=== PATIENT | male | born 1960 | race African-American/Black ===

== ENCOUNTER 2020-09-18 14:22 | Inpatient (IN) | payer MEDICARE, SELFPAY ==
[2020-09-18 15:00] LABS: #Basophils 0.1 thou/uL (0.0-0.2); #Eosinphils 0.1 thou/uL (0.0-0.7); #Lymphocytes 2.8 thou/uL (1.20-3.40); #Monocytes 0.9 thou/uL (0.11-0.59); #Neutrophils 2.5 thou/uL (1.40-6.50); %Basophils 1.5 % (0.0-1.0); %Eosinophils 1.2 % (0.0-10.0); %Lymphocytes 44.1 % (21.0-51.0); %Monocytes 13.3 % (0.0-10.0); %Neutrophils 39.8 % (42.0-75.0); Hemoglobin 14.1 g/dL (14.0-18.0); Mean Corpuscular HGB CONC 33.8 g/dL (32.0-36.0); Mean Corpuscular Hemoglobin 33.5 pg (27.0-31.0); Mean Corpuscular Volume 99.1 fL (78.0-98.0); Mean Platelet Volume 6.9 fL (7.4-10.4); Platelet Count 373 thou/uL (130-400); RBC Distribution Width 13.4 % (11.5-14.5); Red Blood Cell (RBC) Count 4.21 mill/uL (4.70-6.10); White Blood Cell (WBC) Count 6.4 thou/uL (4.8-10.8)
[2020-09-18 15:21] LABS: ALT (SGPT) 20 U/L (8-55); AST (SGOT) 33 U/L (5-34); Albumin 3.7 g/dL (3.4-4.8); Alkaline Phosphatase 57 U/L (40-110); Anion Gap 13 mmol/L (10-20); BUN (Urea Nitrogen) 9 mg/dL (8.4-25.7); Bilirubin, Total 0.3 mg/dL (0.2-1.2); Calc. Creatinine Clearance 0 mL/min (70-130); Calcium 8.5 mg/dL (7.8-10.44); Carbon Dioxide 26 mmol/L (23-31); Chloride 108 mmol/L (98-107); Globulin 3.4 g/dL (2.4-3.5); Glucose 113 mg/dL (80-115); Potassium 3.3 mmol/L (3.5-5.1); Protein, Total 7.1 g/dL (5.8-8.1); Sodium 144 mmol/L (136-145)
[2020-09-18 15:43] LABS: CKMB 2.2 ng/mL (0-6.6)
[2020-09-18] MEDS ORDERED: Nitroglycerin 2% Ointment 1 INCH/1 GM Packet ONE (16:08)
[2020-09-18] MEDS ORDERED: Aspirin 325 MG TAB ONE (16:08)
[2020-09-18] MEDS ORDERED: Ondansetron PF 4 MG/2 ML Vial IVP PRN (18:45)
[2020-09-18] MEDS ORDERED: Ondansetron ODT 4 MG TAB SL PRN (18:45)
[2020-09-18] MEDS ORDERED: Acetaminophen 325 MG TAB PO PRN (18:45)
[2020-09-18 18:57] VITALS: BMI 32.8
[2020-09-18] MEDS ORDERED: Nitroglycerin 0.4 MG TAB (25 Tab Bottle) SL PRN (20:00)
[2020-09-18 21:31] LABS: Troponin I 0.064 ng/mL (< 0.028)
[2020-09-18] MEDS ORDERED: Electrolyte Replacement Protocol 1 EACH FS SCH (22:30)
[2020-09-18] MEDS ORDERED: Potassium Chloride 20 MEQ TAB PO SCH (22:30)
[2020-09-18] MEDS ORDERED: Electrolyte Replacement Protocol FS PRN (22:45)
[2020-09-18] MEDS ORDERED: Enoxaparin Sodium 100 MG/ML SYRINGE SC SCH (22:45)
[2020-09-18] MEDS: Morphine 4 MG/ML VIAL SLOW IVP PRN (23:16)
[2020-09-19] MEDS: hydrALAZINE 20 MG/ML VIAL SLOW IVP PRN ×2 (01:01→06:02)
[2020-09-19] MEDS ORDERED: Labetalol HCl 100 MG/20 ML VIAL SLOW IVP PRN ×2 (03:08→05:26)
[2020-09-19] MEDS ORDERED: Amlodipine 5 MG TAB PO SCH ×2 (03:30→09:00)
[2020-09-19 04:09] LABS: SARS-CoV-2 NAA Rapid Test Not Detected (NotDetected)
[2020-09-19 05:43] LABS: Eosinophils 1 % (0-10); Lymphocytes 40 % (21-51); MDiff Complete? YES; Mean Corpuscular HGB CONC 33.1 g/dL (32.0-36.0); Mean Corpuscular Hemoglobin 32.6 pg (27.0-31.0); Mean Corpuscular Volume 98.3 fL (78.0-98.0); Mean Platelet Volume 6.8 fL (7.4-10.4); Monocytes 8 % (0-10); Neutrophil 41 % (42-75); Nucleated RBC 1 % (0); Platelet Count 354 thou/uL (130-400); Platelet Morphology Comment Appears Adequate; RBC Distribution Width 13.4 % (11.5-14.5); Reactive Lymphocytes 10 % (0-10); Red Blood Cell (RBC) Count 3.98 mill/uL (4.70-6.10); White Blood Cell (WBC) Count 7.3 thou/uL (4.8-10.8)
[2020-09-19 05:46] LABS: Anion Gap 15 mmol/L (10-20); BUN (Urea Nitrogen) 8 mg/dL (8.4-25.7); Calc. Creatinine Clearance 132 mL/min (70-130); Calcium 8.2 mg/dL (7.8-10.44); Carbon Dioxide 24 mmol/L (23-31); Chloride 105 mmol/L (98-107); Glucose 84 mg/dL (80-115); Magnesium 1.2 mg/dL (1.6-2.6); Sodium 141 mmol/L (136-145)
[2020-09-19 05:52] LABS: Potassium 2.7 mmol/L (3.5-5.1)
[2020-09-19] MEDS: Morphine 4 MG/ML VIAL SLOW IVP PRN (06:11)
[2020-09-19] MEDS ORDERED: Magnesium Sulfate 4 GM in Sodium Chloride 0.9% 250 ML 250 ML IVPB SCH (06:15)
[2020-09-19] MEDS: Potassium Chloride 20 MEQ TAB PO SCH ×2 (06:41→10:37)
[2020-09-19] MEDS: Aspirin Chewable 81 MG TAB PO SCH (08:31)
[2020-09-19] MEDS ORDERED: Enoxaparin Sodium 100 MG/ML SYRINGE SC SCH (09:00)
[2020-09-19] MEDS ORDERED: Enoxaparin Sodium 40 MG/0.4 ML SYRINGE SC SCH ×2 (09:00)
[2020-09-19] MEDS ORDERED: Hydrochlorothiazide 25 MG TAB PO SCH (09:00)
[2020-09-19] MEDS ORDERED: Electrolyte Replacement Protocol 1 EACH FS SCH (09:30)
[2020-09-19] MEDS ORDERED: Magnesium 2 GM/50 ML 3 GM in Premix Bag 1 BAG IVPB SCH (09:30)
[2020-09-19] MEDS ORDERED: Sodium Chloride 0.9% 1,000 ML IV SCH ×2 (09:45→09:47)
[2020-09-19] MEDS ORDERED: Magnesium Sulfate 3 GM in Sodium Chloride 0.9% 100 ML IVPB SCH (09:45)
[2020-09-19] MEDS ORDERED: Promethazine HCl 12.5 MG SUPP PR PRN (09:47)
[2020-09-19] MEDS ORDERED: Cetirizine HCl 10 MG TAB PO PRN (09:47)
[2020-09-19] MEDS ORDERED: Loratadine 10 MG TAB PO PRN (09:52)
[2020-09-19] MEDS: DULoxetine 30 MG CAP PO SCH (10:30)
[2020-09-19] MEDS ORDERED: Digoxin 0.125 MG TAB PO SCH (14:30)
[2020-09-19] MEDS ORDERED: Lorazepam 2 MG/ML VIAL SLOW IVP PRN (14:31)
[2020-09-19] MEDS: Sodium Chloride 0.9% 1,000 ML IV SCH (14:54)
[2020-09-19] MEDS: Lorazepam 1 MG TAB PO SCH ×3 (14:54→21:06)
[2020-09-19 15:02] LABS: Potassium 3.3 mmol/L (3.5-5.1)
[2020-09-19] MEDS ORDERED: Potassium Chloride 20 MEQ TAB PO SCH ×2 (15:15→23:30)
[2020-09-19 18:33] LABS: Troponin I 0.053 ng/mL (< 0.028)
[2020-09-19 20:47] LABS: Potassium 3.6 mmol/L (3.5-5.1)
[2020-09-19] MEDS: Metoprolol Tartrate 25 MG TAB PO SCH (21:08)
[2020-09-20] MEDS: hydrALAZINE 20 MG/ML VIAL SLOW IVP PRN (00:09)
[2020-09-20] MEDS: Sodium Chloride 0.9% 1,000 ML IV SCH (04:25)
[2020-09-20 05:16] LABS: Hemoglobin 14.4 g/dL (14.0-18.0); Mean Corpuscular HGB CONC 33.9 g/dL (32.0-36.0); Mean Corpuscular Hemoglobin 33.6 pg (27.0-31.0); Mean Corpuscular Volume 99.1 fL (78.0-98.0); Mean Platelet Volume 6.9 fL (7.4-10.4); Platelet Count 359 thou/uL (130-400); RBC Distribution Width 13.3 % (11.5-14.5); Red Blood Cell (RBC) Count 4.29 mill/uL (4.70-6.10); White Blood Cell (WBC) Count 5.5 thou/uL (4.8-10.8)
[2020-09-20 05:28] LABS: Eosinophils 1 % (0-10); Lymphocytes 23 % (21-51); MDiff Complete? YES; Monocytes 18 % (0-10); Neutrophil 54 % (42-75); Nucleated RBC 1 % (0); Platelet Morphology Comment Appears Adequate; Reactive Lymphocytes 4 % (0-10)
[2020-09-20 05:32] LABS: Anion Gap 11 mmol/L (10-20); BUN (Urea Nitrogen) 6 mg/dL (8.4-25.7); Calc. Creatinine Clearance 133 mL/min (70-130); Calcium 8.3 mg/dL (7.8-10.44); Carbon Dioxide 26 mmol/L (23-31); Chloride 103 mmol/L (98-107); Glucose 81 mg/dL (80-115); Lipase 54 U/L (8-78); Potassium 3.4 mmol/L (3.5-5.1); Sodium 137 mmol/L (136-145)
[2020-09-20] MEDS ORDERED: Potassium Chloride 20 MEQ TAB PO SCH (06:30)
[2020-09-20] MEDS: Terazosin HCl 5 MG CAP PO SCH (08:00)
[2020-09-20] MEDS: Aspirin Chewable 81 MG TAB PO SCH (08:00)
[2020-09-20] MEDS: Lorazepam 1 MG TAB PO SCH ×3 (08:01→21:03)
[2020-09-20] MEDS: Metoprolol Tartrate 25 MG TAB PO SCH ×2 (08:01→21:03)
[2020-09-20] MEDS: Enoxaparin Sodium 40 MG/0.4 ML SYRINGE SC SCH (08:02)
[2020-09-20] MEDS: DULoxetine 30 MG CAP PO SCH (08:02)
[2020-09-20] MEDS ORDERED: Non-Formulary Item 1 EACH (Omeprazole [Omeprazole] 40 MG Capsule.Dr) PO SCH ×2 (09:00)
[2020-09-20] MEDS: Diltiazem HCl 125 MG, Admixture Fee 1 EACH in Sodium Chloride 0.9% 100 ML IVPB SCH (09:26)
[2020-09-20] MEDS: Acetaminophen 500 MG TAB PO PRN (21:02)
[2020-09-21 06:08] LABS: Band 5 % (5-11); Eosinophils 1 % (0-10); Hemoglobin 13.7 g/dL (14.0-18.0); Hypochromia SLIGHT = 6-15 cells (100X) (0-5/hpf); Lymphocytes 35 % (21-51); MDiff Complete? YES; Mean Corpuscular Hemoglobin 32.7 pg (27.0-31.0); Mean Corpuscular Volume 99.3 fL (78.0-98.0); Mean Platelet Volume 7.1 fL (7.4-10.4); Monocytes 14 % (0-10); Neutrophil 45 % (42-75); Platelet Count 347 thou/uL (130-400); Platelet Morphology Comment Appears Adequate; RBC Distribution Width 13.3 % (11.5-14.5); Red Blood Cell (RBC) Count 4.18 mill/uL (4.70-6.10); White Blood Cell (WBC) Count 6.1 thou/uL (4.8-10.8)
[2020-09-21 06:18] LABS: Anion Gap 11 mmol/L (10-20); BUN (Urea Nitrogen) 8 mg/dL (8.4-25.7); Calc. Creatinine Clearance 128 mL/min (70-130); Calcium 8.5 mg/dL (7.8-10.44); Carbon Dioxide 25 mmol/L (23-31); Chloride 105 mmol/L (98-107); Glucose 86 mg/dL (80-115); Magnesium 1.6 mg/dL (1.6-2.6); Potassium 3.4 mmol/L (3.5-5.1); Sodium 138 mmol/L (136-145)
[2020-09-21] MEDS ORDERED: Magnesium 2 GM/50 ML 2 GM in Premix Bag 1 BAG IVPB SCH (06:30)
[2020-09-21] MEDS ORDERED: Potassium Chloride 20 MEQ TAB PO SCH (06:30)
[2020-09-21] MEDS: DULoxetine 30 MG CAP PO SCH (08:41)
[2020-09-21] MEDS: Enoxaparin Sodium 40 MG/0.4 ML SYRINGE SC SCH (08:41)
[2020-09-21] MEDS: Aspirin Chewable 81 MG TAB PO SCH (08:41)
[2020-09-21] MEDS: Metoprolol Tartrate 25 MG TAB PO SCH (08:42)
[2020-09-21] MEDS: Terazosin HCl 5 MG CAP PO SCH (08:42)
[2020-09-21] MEDS: Lorazepam 1 MG TAB PO SCH ×2 (08:42→14:48)
[2020-09-21] MEDS: Diltiazem HCl 125 MG, Admixture Fee 1 EACH in Sodium Chloride 0.9% 100 ML IVPB SCH (10:17)
[2020-09-21 12:43] VITALS: TEMP 98.7
[2020-09-21] MEDS: Acetaminophen 500 MG TAB PO PRN (14:46)
[2020-09-21 16:57] VITALS: BP 146/64
== END 2020-09-21 17:00 | disposition home or self-care (01) | DRG 280 ==
LOC: ERS 14:22 → 2SW 17:38 → OBSVTOIN 17:38
PROVIDERS: ADMIT Hospitalist; ATTEND Internal Medicine
DX: I21.A1 Myocardial infarction type 2 (principal); K85.90 Acute pancreatitis without necrosis or infection, unspecified; I47.1 Supraventricular tachycardia; Z20.822 Contact with and (suspected) exposure to COVID-19; G40.909 Epilepsy, unspecified, not intractable, without status epilepticus; I10 Essential (primary) hypertension; J98.4 Other disorders of lung; E87.6 Hypokalemia; F10.10 Alcohol abuse, uncomplicated; Z88.8 Allergy status to other drugs, medicaments and biological substances; Z98.890 Other specified postprocedural states; Z79.899 Other long term (current) drug therapy
CPT/HCPCS: 36415; 71045; 71275; 80048; 80053; 82553; 83690; 83735; 84484; 85025; 85379; 93005; 93010; 93306; 94760; 96372; 96374; 96375; G0378; J0360; J1650; J2060; J2270; J3475; J3490; J7050; U0002